=== PATIENT | male | born 1995 | race Caucasian/White ===

== ENCOUNTER 2017-02-18 10:47 | Emergency (ER) | payer SELFPAY ==
[2017-02-18 10:56] VITALS: BP 136/88; PULSE 79; RESP 16; TEMP 98.1; O2SAT 95
--- NOTE | 2017-02-18 12:15 | EDPHY ---
H & P Stated Complaint: got up at 0500 hit head on bed/then when woke up again this am "felt foggy" Source: Patient Exam Limitations: No limitations - Personal History Current Tetanus/Diphtheria Vaccine: Yes - Medical/Surgical History Hx Asthma: No Hx Chronic Respiratory Disease: No Hx Diabetes: No Hx Cardiac Disease: No Hx Renal Disease: No Hx Cirrhosis: No Hx Alcoholism: No Hx HIV/AIDS: No Hx Splenectomy or Spleen Trauma: No Other PMH: denies - Family History Significant Family History: Other - Social History Smoking Status: Current every day smoker Alcohol Use: Other (2 weeks, 2 drinks) Drug Use: Marijuana Time Seen by Provider: 02/18/17 12:11 HPI/ROS: HPI: 22-year-old male presents to emergency department with chief concern "hit my head." Awoke at 5:00 a.m. this morning feeling confused. Touched his face and there was blood on his forehead. He reports worsening headache that is 7/ 10 now and generalized. Reports neck pain. Does not remember falling. Roommate found him in the "shower room" and he did not know why he was in there and was simply pacing. Denies fever, chills, myalgias, current dizziness, visual changes URI symptoms, shortness of breath, chest pain, abdominal pain, nausea, vomitin, diarrhea. Denies significant past medical history. Uses marijuana rarely, and has 2 alcoholic beverages every 2 weeks. Denies alcohol or drugs last night. Has no personal history of seizures but there is a significant family history of seizures including his maternal aunt and maternal grand father. ROS:10 point review of systems is negative other than as stated in HPI (Diana Daniel) - Social History Additional Social History: Works as a grocery cashier. (Diana Daniel) - Physical Exam Exam: Vital signs stable, reviewed by me General: Awake, calm, cooperative. No acute distress. Head:normalocephalic, atraumatic Face: Right forehead well-approximated 1 cm laceration with hemostasis achieved EENT: PERRLA. EOMI. No papilledema. no conjunctival injection or hemorrhage. TMs intact, translucent. No evidence of bleeding or otorrhea. Nasal septum midline, nasal mucosa pink. no evidence of drainage. Uvula midline, pharynx without redness. Neck: Midline tenderness Resp: Breathing unlabored. Lungs clear to auscultation bilaterally. CV: HRR. S1S2. No MRG. GI: Abdomen soft, nontender. Bowel sounds normoactive and positive x4 quadrants. Skin: Warm, dry. No rashes noted. Capillary refill less than 2 seconds. Musculoskeletal: Strength equal and 5+ in all 4 extremities. Moves all extremities. Neuro: No focal neuro deficit. CN II through XII intact. Rapid alternating hand movements intact. Finger to nose intact. Heel to mckeon intact. Negative Romberg. Negative pronator drift. Gait even and steady. Memory and recall of 3/3 objects at 5 minutes intact. Upper and lower extremity DTRs 2+. Extremities: Full range of motion. (Diana Daniel) Constitutional: Initial Vital Signs Temperature (C) 36.7 C 02/18/17 10:53 Heart Rate 79 02/18/17 10:53 Respiratory Rate 16 02/18/17 10:53 Blood Pressure 136/88 H 02/18/17 10:53 O2 Sat (%) 95 02/18/17 10:53 O2 Delivery Mode Room Air Allergies/Adverse Reactions: Penicillins Allergy (Verified 02/18/17 10:52) Home Medications: Medication Instructions Recorded NK [No Known Home Meds] 02/18/17 Medical Decision Making - Diagnostics EKG Interpretation: 12-lead EKG interpreted by me; official reading is in trace master. My interpretation is sinus rhythm, early repolarization, rate 67. (Ignacio Madden) ED Course/Re-evaluation: 22-year-old male presents to emergency department having hit his head. He does not recall events that occurred but awoke at 0 500 with a bloody laceration to the right side of his forehead. Reports headache. There is a family history of seizures. Patient has never had a seizure. CBC unremarkable. Metabolic panel is unremarkable. EKG shows a sinus rhythm, no evidence of acute ischemia or dysrhythmia. CT head neck are negative. Patient has no primary care provider. He has been discharged to follow up with outpatient medicine color separation photographer. He verbalizes understanding of plan and agrees to follow up. (Diana Daniel) Differential Diagnosis: Differential diagnosis includes but is not limited to metabolic derangement, vasovagal, seizure, head injury, intracranial bleed, cardiac dysrhythmia (Diana Daniel) Other Provider: I discussed the case with the patient on the phone at 7:55 a.m. on Saturday the . He feels better but is able to provide some further information. His roommate apparently heard noises like a dog playing tug of war with a toy in the patient' s bedroom prior to his arrival in the ER and wondered if that was seizure activity. Given the patient's family history I think I would still have a suspicion that he did have a seizure which prompted his Emergency Department visit. He is referred to Dr. Carter, who was the on-call neurologist on the day of his visit. He is warned no driving or power equipment or swimming or ladders etc until this can be clarified and he is cleared for full activity by his follow-up neurologist. Patient took the information for Neurology referral and will make an appointment. (Ignacio Madden) - Data Points Laboratory Results: Laboratory Results 02/18/17 12:30 02/18/17 12:30 Departure - Departure Disposition: Home, Routine, Self-Care Clinical Impression: possible seizure Head injury Qualifiers: Encounter type: initial encounter Qualified Code(s): S09.90XA - Unspecified injury of head, initial encounter Concussion Qualifiers: Encounter type: initial encounter Loss of consciousness presence/duration: without LOC Qualified Code(s): S06.0X0A - Concussion without loss of consciousness, initial encounter Condition: Good Instructions: Concussion (ED), Head Injury (ED) Additional Instructions: Plan: Dark room, low stimulation until feeling better Return to ER immediately for any of the follow severe or worsening headaches, somnolence or confusion, restlessness, unsteadiness, or seizures, difficulty with vision, vomiting, fever, or stiff neck, bowel or bladder incontinence, weakness or numbness involving any part of the body. You may use 650 mg of Tylenol every 8 hours. Do not exceed the maximum dose in a 24 hour period which is 3 GM or 3000 mg. Follow up with provider listed in your paperwork within the next 48 hours for recheck without fail--When you call to schedule appointment, please let the office know you are an "ER follow up" appointment" Referrals: NONE *PRIMARY CARE P,. [Primary Care Provider] - As per Instructions Trish Chandler MD [[facility] [place] Primary Care Provider] - As per Instructions Stand Alone Forms: Work Excuse
--- NOTE | 2017-02-18 12:18 | CPEKG ---
Heart Rate: 67 RR Interval: 896 P-R Interval: 168 QRSD Interval: 96 QT Interval: 364 QTC Interval: 385 P [place]: 60 QRS [place]: 75 T Wave [place]: 36 EKG Severity - NORMAL ECG - EKG Impression: SINUS RHYTHM EKG Impression: ST ELEV, PROBABLE NORMAL EARLY REPOL PATTERN Electronically Signed By: Ignacio Madden 18-Feb-2017 14:38:03
[2017-02-18 12:40] LABS: ADD DIFF? NO; ADD MORPH? NO; ADD SCAN? NO; ATYPICAL LYMPHOCYTE FLAG 0 (0-99); FRAGMENT RBC FLAG 0 (0-99); HEMATOCRIT 48.3 % (40.0-51.0); LEFT SHIFT FLG 0 (0-99); LIPEMIA HEMOLYSIS FLAG 90 (0-99); MEAN CELL HEMOGLOBIN 31.7 pg (27.9-34.1); MEAN CELL HEMOGLOBIN CONCENTR. 35.2 g/dL (32.4-36.7); MEAN CELL VOLUME 89.9 fL (81.5-99.8); MEAN PLATELET VOLUME 10.1 fL (8.7-11.7); PLATELET CLUMPS FLAG 0 (0-99); PLATELET COUNT 169 10^3/uL (150-400); RED BLOOD CELL COUNT 5.37 10^6/uL (4.40-6.38); RED CELL DISTRIBUTION WIDTH 12.4 % (11.5-15.2)
[2017-02-18 13:01] LABS: ANION GAP 8 mEq/L (8-16); CALCIUM 9.6 mg/dL (8.5-10.4); CARBON DIOXIDE 25 mEq/l (22-31); CHLORIDE 109 mEq/L (97-110); CREATININE 0.9 mg/dL (0.7-1.3); GLOMERULAR FILTRATION RATE > 60; GLUCOSE 86 mg/dL (70-100); POTASSIUM 4.3 mEq/L (3.5-5.2); SODIUM 142 mEq/L (134-144)
== END 2017-02-18 13:34 | disposition home or self-care (01) ==
DX: S06.0X0A Concussion without loss of consciousness, initial encounter (principal); F17.200 Nicotine dependence, unspecified, uncomplicated; W22.8XXA Striking against or struck by other objects, initial encounter; Y92.002 Bathroom of unspecified non-institutional (private) residence as the place of occurrence of the external cause

== ENCOUNTER 2017-06-15 17:43 | Emergency (ER) | payer SELFPAY ==
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
[2017-06-15] MEDS ORDERED: NS 1,000 ML IV ONE ×2 (19:11)
[2017-06-15] MEDS ORDERED: ONDANSETRON 4 MG/2 ML VIAL IVP ONE (19:11)
[2017-06-15 19:46] VITALS: RESP 16
[2017-06-15 19:48] VITALS: TEMP 98.2
[2017-06-15] MEDS ORDERED: ONDANSETRON 4MG PREPACK#2 BTL TAKEHOME ONE (21:17)
[2017-06-15 21:41] VITALS: BP 128/80; PULSE 73; O2SAT 98
== END 2017-06-15 21:41 | disposition home or self-care (01) ==
DX: R11.2 Nausea with vomiting, unspecified (principal); F17.200 Nicotine dependence, unspecified, uncomplicated; E86.9 Volume depletion, unspecified
CPT/HCPCS: 96374; J2405

== ENCOUNTER 2018-01-23 13:01 | Emergency (ER) | payer OTHER ==
[2018-01-23 13:11] VITALS: RESP 16
--- NOTE | 2018-01-23 13:50 | EDPHY ---
General Time Seen by Provider: 01/23/18 13:37 Narrative: CHIEF COMPLAINT: Neck pain injury HISTORY OF PRESENT ILLNESS: Patient complains of right-sided neck pain. This started suddenly this morning at 5:00 a.m.. He was turning his head when he felt a sudden onset of pain and heard a "crack in my neck or jaw." He had 1st felt it was his draw but then felt the pain in the neck. It is all right-sided. It is severe, 10/10. It is constant. It radiates down his entire body to his heel. He feels it by breathing from his right heel to his neck. No numbness or tingling. He feels his arms are weak. He has no chest pain or shortness of breath. No incontinence of bowel or bladder. No saddle anesthesia. No direct trauma or injury. No other associated complaints or modifying factors. No history of cervical pathology. REVIEW OF SYSTEMS: Ten systems reviewed and are negative unless otherwise noted in the HPI PCP: Dr. Marrero SPECIALISTS: None PAST MEDICAL HISTORY: None PAST SURGICAL HISTORY: No surgical history SOCIAL HISTORY: Vaporizes nicotine. Occasional alcohol. Occasional marijuana. Works as a certified nurse's aide FAMILY HISTORY: Noncontributory EXAMINATION General Appearance: Alert, no distress Head: normocephalic, atraumatic Eyes: Pupils equal and round, no conjunctival pallor or injection ENT, Mouth: Mucous membranes moist Neck: Muscle spasms of the right trapezius. No midline tenderness, crepitus, step-off or deformity. Difficult to fully range the neck due to pain. No nuchal rigidity. Respiratory: Lungs are clear to auscultation Cardiovascular: Regular rate. Symmetric radial pulses 2+. Gastrointestinal: Abdomen is soft and nontender Back: non-tender, no bony abnormalities Neurological: Strength is 5/5 all 4 limbs. Triceps reflexes symmetric. A&O, nonfocal, strength is 5/5 in both shoulders, elbows and wrist. Skin: Warm and dry, no rash. No petechiae or purpura. No cellulitis or skin changes over the area of pain Extremities: Nontender, no pedal edema. Symmetric range of motion. Psychiatric: Mood and affect normal DIFFERENTIAL DIAGNOSES: Including but not limited to cervical sprain, cervical strain, cervical fracture , disc bulge, disc herniation, neurapraxia MDM: 1:30 p.m. Acute neck pain after turning his head to the left. Patient does have severe pain and visible muscle spasms. No midline tenderness. No neuro deficits despite feeling weak in his upper extremities. I have ordered x-ray of the neck , dose of steroid and dose of muscle relaxant by mouth. 2:35 p.m. X-ray of the neck reveals some dextro curvature. No fracture noted. I have re- evaluated the patient. He has minimal improvement with medications. I repeated the neuro exam he has no deficits at this time. I did offer an MRI of the cervical spine and he declined. He does not want to have an MRI at this time. I discussed the low likelihood of any cord injury given his normal neuro examination. I suspect this is soft tissue injury and/or disc bulge. I discussed short course of pain medication, muscle relaxant and steroid therapy. Given that he does not want an MRI, I would like him to return here tomorrow if he does not have significant improvement in his pain. He is also to return here immediately for any sudden worsening of pain, numbness, tingling, weakness , incontinence of bowel or bladder or difficulty with his upper extremity movement. He voices understanding of this and would like to be discharged home. He discharged home stable condition. SUPERVISION: This patient was independently evaluated without direct involvement of or examination by the attending physician. - History Smoking Status: Current every day smoker - Objective Vital Signs: Initial Vital Signs Temperature (C) 97.2 F 01/23/18 13:07 Heart Rate 78 01/23/18 13:07 Respiratory Rate 16 01/23/18 13:07 Blood Pressure 147/88 H 01/23/18 13:07 O2 Sat (%) 95 01/23/18 13:07 O2 Delivery Mode Room Air Allergies/Adverse Reactions: Penicillins Allergy (Verified 02/18/17 10:52) Home Medications: Medication Instructions Recorded Cyclobenzaprine [Flexeril 10 MG 10 mg PO TID PRN #9 tab 01/23/18 (*)] Hydrocodone/APAP 5/325 [[place] 1 - 2 tab PO Q4H PRN #7 tab 01/23/18 5/325 (*)] predniSONE [Deltasone] 60 mg PO DAILY #12 tablet 01/23/18 Departure - Departure Disposition: Home, Routine, Self-Care Clinical Impression: Muscle spasms of neck Cervical strain, acute Qualifiers: Encounter type: initial encounter Qualified Code(s): S16.1XXA - Strain of muscle, fascia and tendon at neck level, initial encounter Condition: Good Instructions: Muscle Spasm (ED), Cervical Strain (ED) Additional Instructions: 1. Steroid prescription as provided. Next dose on January 24 2. Muscle relaxant Flexeril as prescribed as needed every 8 hr. Do not take this again until 9:00 p.m. Today 3. Pain medication as prescribed as needed. Do not mix with alcohol or illicit substances 4. Contact primary care physician for outpatient follow-up 5. Return here if your pain does not significantly improved by tomorrow 6. Return to emergency department immediately for any sudden change of pain, numbness, tingling, weakness, difficulty with upper extremity movement Referrals: Yuridia Marrero MD [Primary Care Provider] - As per Instructions Stand Alone Forms: Work Excuse Prescriptions: Cyclobenzaprine [Flexeril 10 MG (*)] 10 mg PO TID PRN #9 tab PRN Reason: Spasms Hydrocodone/APAP 5/325 [[place] 5/325 (*)] 1 - 2 tab PO Q4H PRN #7 tab PRN Reason: Pain, Moderate predniSONE [Deltasone] 60 mg PO DAILY #12 tablet
[2018-01-23] MEDS ORDERED: CYCLOBENZAPRINE 10 MG TAB PO ONE (13:51)
[2018-01-23] MEDS ORDERED: DEXAMETHASONE 4 MG TAB PO ONE (13:51)
[2018-01-23 14:59] VITALS: BP 130/75; PULSE 81; TEMP 98.6; O2SAT 97
== END 2018-01-23 15:04 | disposition home or self-care (01) ==
DX: S16.1XXA Strain of muscle, fascia and tendon at neck level, initial encounter (principal); F17.200 Nicotine dependence, unspecified, uncomplicated; X50.9XXA Other and unspecified overexertion or strenuous movements or postures, initial encounter

== ENCOUNTER 2018-03-18 18:40 | Emergency (ER) | payer OTHER ==
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
[2018-03-18 20:11] VITALS: BP 162/93
== END 2018-03-18 20:05 | disposition home or self-care (01) ==
DX: S09.93XA Unspecified injury of face, initial encounter (principal); F17.200 Nicotine dependence, unspecified, uncomplicated; Y08.89XA Assault by other specified means, initial encounter; Y92.69 Other specified industrial and construction area as the place of occurrence of the external cause; Y99.0 Civilian activity done for income or pay

== ENCOUNTER 2018-07-23 14:18 | Emergency (ER) | payer OTHER ==
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
[2018-07-23] MEDS ORDERED: IOPAMIDOL (ISOVUE 370) 100 ML BTL IV ONE (15:22)
[2018-07-23 16:15] VITALS: BP 130/90
== END 2018-07-23 16:13 | disposition home or self-care (01) ==
DX: S19.80XA Other specified injuries of unspecified part of neck, initial encounter (principal); Y04.8XXA Assault by other bodily force, initial encounter; Y93.F9 Activity, other caregiving; Y92.129 Unspecified place in nursing home as the place of occurrence of the external cause; Y99.0 Civilian activity done for income or pay
CPT/HCPCS: 82435-PO; 82565-PO; 82947-PO; 84132-PO; 84295-PO; 84520-PO; 85014-PO; Q9967